=== PATIENT | female | born 1960 | race Caucasian/White ===

== ENCOUNTER 2025-07-01 13:29 | Emergency (ER) | payer MEDICARE, SELFPAY ==
[2025-07-01 13:31] VITALS: BP 181/90; PULSE 91; RESP 18; TEMP 35.5; O2SAT 98; BMI 34.2
--- NOTE | 2025-07-01 14:37 | CT_ITS ---
PROCEDURE: EXTREMITY UPPER WITHOUT CONTRA 07/01/2025 REASON FOR EXAM: INJURY AND PAIN TECHNIQUE: Procedure Code: CTEUWO Modality: CT Procedure: EXTREMITY UPPER WITHOUT CONTRA Coronal and Sagittal reconstruction series were provided. One or more dose reduction techniques were used (e.g., Automated exposure control, adjustment of the mA and/or kV according to patient size, use of iterative reconstruction technique. RADIATION DOSE SUMMARY: CTDlvol: 26.47 mGy DLP: 1240.57 mGycm COMPARISON: None FINDINGS: Bones: Status post surgical fixation of right humerus with metallic hardware. Joints: Glenohumeral joint and acromioclavicular joint space narrowing with sclerosis consistent with arthritis. Soft Tissues: Atelectasis in the right lower lung. No soft tissue abnormalities. CT/Extremity Upper without Contra IMPRESSION: No acute bony abnormalities. Osteoarthritis. Reading Location: [id number]
--- NOTE | 2025-07-01 14:37 | CT_ITS ---
PROCEDURE: SPINE CERVICAL WITHOUT CONTRAS 07/01/2025 REASON FOR EXAM: INJURY AND PAIN TECHNIQUE: Procedure Code: CTSPC Modality: CT Procedure: SPINE CERVICAL WITHOUT CONTRAS Coronal and Sagittal reconstruction series were provided. One or more dose reduction techniques were used (e.g., Automated exposure control, adjustment of the mA and/or kV according to patient size, use of iterative reconstruction technique. RADIATION DOSE SUMMARY: CTDlvol: 26.47 mGy DLP: 1240.57 mGycm COMPARISON: None. FINDINGS: Alignment: Anatomical alignment. Vertebrae: No acute bony abnormalities. Soft Tissues: No soft tissue abnormalities. The lungs are clear. Other: C1-2: Unremarkable. C2-3: Unremarkable. C3-4: Disc space narrowing. Facet joints arthropathy. Severe left and mild right foramina stenosis. No significant canal stenosis. C4-5: Disc space narrowing. Facet joints arthropathy. Uncovertebral hypertrophy. Severe right and moderate left foramina stenosis. No significant canal stenosis. C5-6: Disc space narrowing. Uncovertebral hypertrophy. Severe right and moderate left foramina stenosis. Mild canal stenosis. C6-7: Disc space narrowing. Uncovertebral hypertrophy. Severe bilateral foramina stenosis. Mild canal stenosis. C7-T1: Disc space narrowing. Facet joints arthropathy. Mild bilateral foramina stenosis. No canal stenosis. CT/Spine Cervical without Contras IMPRESSION: Multilevel degenerate changes predominantly for severe right and moderate left foramina stenosis at C4-C5 and C 5 C6. Severe left foramina stenosis at C3-C4. Severe bilateral foramina stenosis at C6-C7. Reading Location: [id number]
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
--- NOTE | 2025-07-02 15:27 | CASEMGMT ---
SARY received for the pt's Diazepam rx. TC to the pt at this time who states that she already picked up the Rx for cheap and denies any issues or concerns.
== END 2025-07-01 16:30 | disposition home or self-care (01) ==
PROVIDERS: Emergency Provider Emergency Medicine; PCP Family Medicine; Visit Provider Emergency Medicine
DX: M19.011 Primary osteoarthritis, right shoulder (principal); I10 Essential (primary) hypertension; M48.02 Spinal stenosis, cervical region
CPT/HCPCS: 72125; 73200; 99283